=== PATIENT | female | born 1990 | race Caucasian/White ===

== ENCOUNTER 2017-11-21 09:55 | Inpatient (IN) | payer OTHER ==
[2017-11-21] MEDS: LACTATED RINGER'S 1000 ML IV (10:59)
[2017-11-21 11:02] LABS: HEMOGLOBIN 14.9 g/dl (12.0-16.0); MEAN CORPUSCULAR HEMOGLOBIN 31.3 pg (27.0-33.0); MEAN CORPUSCULAR HGB CONC 35.5 g/dl (32.0-36.5); MEAN CORPUSCULAR VOLUME 88.2 fl (80.0-96.0); PLATELET COUNT, AUTOMATED 298 10^3/uL (150-450); RED BLOOD COUNT 4.76 10^6/uL (4.00-5.40); RED CELL DISTRIBUTION WIDTH 12.9 % (11.5-14.5); WHITE BLOOD COUNT 19.8 10^3/uL (4.0-10.0)
[2017-11-21] MEDS ORDERED: FENTANYL 2MCG/ML ROPIVACAINE 0.2% IN 0.9% NACL 200ML IVBAG As Ordered (11:21)
[2017-11-21] MEDS: LR 1,000 ML IV ×2 (13:12→17:19)
[2017-11-21 14:13] LABS: AMPHETAMINES URINE REFLEX NEGATIVE (NEGATIVE); BARBITURATES URINE REFLEX NEGATIVE (NEGATIVE); BENZODIAZEPINES URINE REFLEX NEGATIVE (NEGATIVE); CANNABINOIDS URINE REFLEX NEGATIVE (NEGATIVE); COCAINE METABOLITE URINE REFLE NEGATIVE (NEGATIVE); METHADONE URINE REFLEX NEGATIVE (NEGATIVE); OPIATES URINE REFLEX NEGATIVE (NEGATIVE); PHENCYCLIDINE URINE REFLEX NEGATIVE (NEGATIVE)
[2017-11-21] MEDS ORDERED: BICITRA 30ML SOLN UDC As Ordered (21:01)
[2017-11-21] MEDS: AZITHROMYCIN INJ 500 MG, VIAL MATE ADAPTER 1 EACH in D5W 250 ML IV (21:10)
[2017-11-21] MEDS: BICITRA 30ML SOLN UDC PO (21:11)
[2017-11-21] MEDS ORDERED: METOCLOPRAMIDE INJ 10MG/2ML VIAL (J2765) IV ×2 (22:13→23:15)
[2017-11-21] MEDS ORDERED: NALOXONE INJ 0.4 MG/1 ML VIAL (J2310) IV ×2 (22:13)
[2017-11-21] MEDS ORDERED: ONDANSETRON 4MG/2ML VIAL (J2405) IV (23:15)
[2017-11-21] MEDS ORDERED: LR 1,000 ML IV (23:15)
[2017-11-21] MEDS ORDERED: PERCOCET 5MG/325MG TAB PO (23:15)
[2017-11-21] MEDS ORDERED: NALBUPHINE HCL 10 MG/ML AMP (J2300) IV (23:15)
[2017-11-21] MEDS ORDERED: fentaNYL 100 MCG/2 ML INJECTION (J3010) IV (23:15)
[2017-11-22] MEDS ORDERED: ONDANSETRON 4MG/2ML VIAL (J2405) IV
[2017-11-22] MEDS ORDERED: PROMETHAZINE 25 MG TAB PO
[2017-11-22] MEDS ORDERED: METHYLERGONOVINE MALEATE 0.2 MG/ML VIAL (J2210) IM
[2017-11-22] MEDS: LR 1,000 ML IV ×4 (00:47→23:51)
[2017-11-22] MEDS: PERCOCET 5MG/325MG TAB PO ×3 (03:24→13:56)
[2017-11-22] MEDS: NALBUPHINE HCL 10 MG/ML AMP (J2300) IV (03:35)
[2017-11-22] MEDS: KETOROLAC 30 MG/ML VIAL (J1885) IV ×4 (04:21→22:10)
[2017-11-22] MEDS: MEASLES,MUMPS,RUBELLA VACCINE INJ (MMR-II) (90707) SC (06:21)
[2017-11-22] MEDS: RHOGAM 300 MCG (1500 IU) INJ (J2790) IM (06:21)
[2017-11-22 07:09] LABS: HEMATOCRIT 32.5 % (36.0-47.0); MEAN CORPUSCULAR HEMOGLOBIN 31.1 pg (27.0-33.0); MEAN CORPUSCULAR HGB CONC 34.5 g/dl (32.0-36.5); MEAN CORPUSCULAR VOLUME 90.3 fl (80.0-96.0); PLATELET COUNT, AUTOMATED 201 10^3/uL (150-450); RED CELL DISTRIBUTION WIDTH 12.9 % (11.5-14.5); WHITE BLOOD COUNT 18.2 10^3/uL (4.0-10.0)
[2017-11-22 07:11] LABS: HEMOGLOBIN 11.2 g/dl (12.0-16.0)
[2017-11-22] MEDS: ONDANSETRON 4MG/2ML VIAL (J2405) IV (07:54)
[2017-11-22] MEDS: DOCUSATE SODIUM 100 MG CAP PO ×2 (09:00→21:07)
[2017-11-22] MEDS: PRENATAL VITAMINS CHEWABLE TABLET PO (09:00)
[2017-11-23] MEDS ORDERED: PERCOCET 5MG/325MG TAB As Ordered (02:25)
[2017-11-23] MEDS: PERCOCET 5MG/325MG TAB PO ×2 (02:31→08:21)
[2017-11-23] MEDS: IBUPROFEN 800 MG TAB PO (05:55)
[2017-11-23] MEDS: PRENATAL VITAMINS CHEWABLE TABLET PO (08:21)
[2017-11-23] MEDS: DOCUSATE SODIUM 100 MG CAP PO (08:22)
== END 2017-11-23 13:00 | disposition home or self-care (01) | DRG 766 ==
LOC: M LDO 09:55 → M OBS 11-22 00:24 → M LDI 11:01
PROVIDERS: Obstetrics & Gynecology
PROC: 10D00Z1 Extraction of Products of Conception, Low, Open Approach (ICD-10-PCS; principal; 2017-11-21 21:38)
DX: O48.0 Post-term pregnancy (principal); Z37.0 Single live birth; Z3A.40 40 weeks gestation of pregnancy; O34.211 Maternal care for low transverse scar from previous cesarean delivery; Z91.040 Latex allergy status; O62.0 Primary inadequate contractions; O66.41 Failed attempted vaginal birth after previous cesarean delivery